=== PATIENT | female | born 1995 | race Caucasian/White ===

== ENCOUNTER 2022-02-21 14:53 | Emergency (ER) | payer BC, SELFPAY ==
[2022-02-21 15:05] VITALS: BP 124/73; PULSE 109; RESP 14; TEMP 36.6; O2SAT 99; BMI 33.5
[2022-02-21 15:15] LABS: Apearance,Urine Cloudy (Clear); Color,Urine Yellow (Yellow); PH,Urine 6.5 (5.0-8.5); Specific Gravity, Urine 1.025 (1.005-1.030)
[2022-02-21 15:16] LABS: Glucose,Urine (UA) Negative (Negative); Ketones,Urine Negative (Negative); Protein,Urine Trace (Negative)
--- NOTE | 2022-02-21 15:20 | EXP.UTC ---
Discharge Plan Disposition Patient Disposition: Home, Self-Care Condition: Good Prescriptions Prescriptions: New cefdinir 300 mg capsule 300 mg PO BID Qty: 14 0RF Referrals Follow up/Referrals: Christiano Chandler [Primary Care Provider] - See instructions Activity Restrictions/Add. Instructions Additional Instructions/Restrictions: *Increase fluids. Water not Soda or Tea *Start antibiotic immediately and be sure to take as ordered for the FULL length of time although you should start to see improvement over the next 48 hours *Be SURE to follow up anytime for new or worsening symptoms with your family doctor. AND in 48 hours for urine culture results with your family doctor, if you do not have a doctor then you may call back to the [facility] for urine culture results and further treatment. We do recommend that you choose and establish care with a Primary Care Physician. ?AND follow up with them ?in 10-14 days to repeat UA to ensure infection is resolved and blood no longer present *Be sure to let your PCP know that we sent urine cultures from the [facility] so they can follow up to ensure that you area the on the correct antibiotic Call your doctor office and make appointment for 48 hours (2 days from today) ?to follow up and get the results of your urine culture and further treatment Clinical Impressions Clinical Impression: UTI (urinary tract infection) Instructions Patient Instructions: DI for Urinary Tract Infection (UTI) Discharge ED Provider: Niurka Rodriguez [facility] HPI General Stated complaint: frequency and burning when urinating Mode of Arrival: Ambulatory Source of Information: Patient Limitations: No Limitations Time Seen by Provider: 02/21/22 15:20 Description of Symptoms (Recalled from Triage Doc. by RN): PATIENT C/O BURNING AND URGENCY WITH URINATION SINCE LAST NIGHT HEENT Symptoms (Recalled from RN notes): No Resp Symptoms (Recalled from RN notes): No Skin Symptoms (Recalled from RN notes): No MS Symptoms (Recalled from RN notes): No Functional Status (Recalled from RN notes): WNL History of Present Illness Provider Complaint: Patient states that she feels like she has a UTI States that she is 10wks OB States that she has been having burning with urination and frequency and urgency like she has with UTI so she came in to get checked Related Data Previous Rx's Medication Instructions Recorded cefdinir 300 mg capsule 300 mg PO BID #14 caps 02/21/22 Allergies Allergy/AdvReac Type Severity Reaction Status Date / Time No Known Allergies Allergy Verified 02/21/22 15:16 Worker's Comp Is this a Worker's Comp case?: No [facility] Disclaimer: The information contained in this section may have been updated after the patient was seen, as this information can be updated by other users. Medical History (Updated 02/21/22 @ 15:25 by Niurka Rodriguez APRN) Migraine Urinary tract infection Social History (Updated 02/21/22 @ 15:16 by Wendie Castanon RN) Smoking Status: Unknown if ever smoked alcohol intake: never current occupational status: employed Travel in the last 8 weeks: None ROS Obtained: Yes All systems reviewed & no additional complaints except as documented and Yes Systems reviewed as appropriate & no additional complaints except as documented Constitutional Constitutional: Reports system reviewed and no additional complaints, except as documented, Reports as per HPI and Denies fever(s) ENT Ears, Nose, Mouth, and Throat: Reports system reviewed and no additional complaints, except as documented and Reports as per HPI Cardiovascular Cardiovascular: Reports system reviewed and no additional complaints, except as documented and Reports as per HPI Respiratory Respiratory: Reports system reviewed and no additional complaints, except as documented and Reports as per HPI Gastrointestinal Gastrointestingal: Reports system reviewed and no additional complaints, except as documented and as per HPI; Denies a
[2022-02-21 15:21] LABS: Bilirubin,Urine Negative (Negative); Blood, Urine Trace (Negative)
[2022-02-21 15:22] LABS: UTC Leukocyte Esterase,Urine 1+ (Negative); Urobilinogen,Urine 0.2 EU/dl (0.2)
[2022-02-21 15:23] LABS: UTC Nitrate,Urine Negative (Negative)
[2022-02-21 15:26] VITALS: BP 124/73; PULSE 109; RESP 14; TEMP 36.6; O2SAT 99
== END 2022-02-21 15:40 | disposition home or self-care (01) ==
PROVIDERS: Emergency Provider Nurse Practitioner; PCP Pediatrics
DX: N39.0 Urinary tract infection, site not specified (principal)
CPT/HCPCS: 81003; 87086; 87088; 87186; 99212; 99213; G0463

== ENCOUNTER 2024-05-25 22:00 | Emergency (ER) | payer BC, SELFPAY ==
[2024-05-25 22:13] VITALS: BP 115/73; PULSE 128; RESP 18; TEMP 37.1; O2SAT 97; BMI 33.9
--- NOTE | 2024-05-25 23:27 | ECG_ITS ---
APPROVED REPORT Exam: Resting ECG HR:115 bpm ECG Measurements Heart Rate 115 AXES IA 160 P 55 QRSd 71 QRS 61 QT 281 T 50 QTc 349 Conclusion SINUS TACHYCARDIA POSSIBLE LEFT ATRIAL ENLARGEMENT [-0.1mV P-WAVE IN V1/V2] Poor R wave progression, POSSIBLE ANTEROLATERAL MYOCARDIAL INFARCTION , OF INDETERMINATE AGE [30 ms Q WAVE IN I/aVL/V3-V6] No STEMI Electronically signed by : AMANDA FLORES, 05/26/2024 04:21:38
[2024-05-25] MEDS: ONDANSETRON 4MG/2ML VIAL 4 MG IV (23:42)
[2024-05-25] MEDS: KETOROLAC 30MG/ML VIAL 30 MG IV (23:42)
[2024-05-25] MEDS: LACTATED RINGERS 1000ML 1,000 ML 999 ML IV (23:43)
[2024-05-25 23:46] LABS: Coronavirus 19, PCR Not Detected (NotDetected); Influenza A, PCR Not Detected (NotDetected); Influenza B, PCR Not Detected (NotDetected)
[2024-05-25 23:55] LABS: Basophils # 0.1 K/mm3 (0-0.2); Basophils % 0.4 % (0.1-2.0); Eosinophils % 0.1 % (0.1-12.0); Hematocrit 37.8 % (37.0-47.0); Hemoglobin 12.7 g/dL (12.2-16.2); Lymphocytes # 1.2 K/mm3 (0.7-4.5); Lymphocytes % 8.7 % (10-50); Mean Corpuscular HGB Conc 33.6 g/dL (31.8-35.4); Mean Corpuscular Volume 89.2 fl (81-99); Monocytes # 0.6 K/mm3 (0.1-1.0); Monocytes % 4.1 % (1.7-9.3); Neutrophils # 12.1 K/mm3 (1.8-7.8); Neutrophils % 86.3 % (37.0-80.0); Nucleated Red Blood Cells # 0 10^3/uL; Nucleated Red Blood Cells % 0 %; Platelet Count 215 K/mm3 (142-424); Red Blood Count 4.24 M/mm3 (4.20-5.40); Red Cell Distribution Width 12.9 % (11.5-17.5); Red Cell Distribution Width-SD 41.8 fL
[2024-05-26 00:17] LABS: D-Dimer 0.67 ug/mL (0.0-0.5)
[2024-05-26 00:19] LABS: HCG Qualitative, Serum Negative (Negative)
[2024-05-26 01:05] VITALS: BP 142/92; PULSE 96; RESP 20; TEMP 36.8; O2SAT 96
[2024-05-26 01:05] LABS: Alanine Aminotransferase 38 U/L (12-78); Albumin Level 4.2 g/dl (3.5-5.0); Albumin/Globulin Ratio 1.3 (1.1-1.8); Alkaline Phosphatase 92 U/L (38-126); Aspartate Amino Transferase 36 U/L (14-36); Bilirubin,Total 1.4 mg/dl (0.2-1.3); Blood Urea Nitrogen 11 mg/dl (7-17); Calcium 9.2 mg/dl (8.4-10.2); Carbon Dioxide 22 mmol/L (22.0-30.0); Chloride 104 mmol/L (98-107); Creatinine Clearance Estimated 212 mL/min (50-200); Estimated Glomerular Filt Rate 120 ml/min (>60); GFR (African American) 145 ML/MIN (>60); Globulin 3.2 g/dL (1.3-3.2); Glucose 110 mg/dl (74-100); Sodium 137 mmol/L (136-145); Total Protein,Serum 7.4 g/dl (6.3-8.2)
--- NOTE | 2024-05-26 01:05 | ED_ITS ---
Discharge Plan Disposition Patient Disposition: Home, Self-Care Condition: Good Prescriptions Prescriptions: New ondansetron 4 mg tablet,disintegrating 4 mg PO Q6H PRN (Reason: nausea and vomiting) Qty: 10 0RF No Action cefdinir 300 mg capsule 300 mg PO BID Qty: 14 0RF Referrals Follow up/Referrals: Provider,Referral, [Primary Care Provider] - See instructions Activity Restrictions/Add. Instructions Additional Instructions/Restrictions: You were evaluated in the ER and are appropriate for discharge at this time. Take the prescribed ondansetron if needed for nausea and vomiting. Drink plenty of fluids including water, Gatorade, Pedialyte. Take Tylenol or ibuprofen if needed for fevers, body aches. Do not exceed the recommended dose on the bottle. Drink water and eat a small snack each time you take these medications to avoid side effects. Make an appointment with your primary care doctor for reevaluation in 2 to 3 days. Return to the ER with any new, worsening, or otherwise concerning symptoms. Clinical Impressions Clinical Impression: Fever, Body aches, Cough, Vomiting Print Language Print Language: Citizen Of [place] Discharge ED Provider: Jenny Bernal General Adult HPI General Chief complaint: Upper Respiratory Infection Stated complaint: discomfort in chest,headache,SOA,fever Time Seen by Provider: 05/25/24 23:28 Mode of Arrival: Ambulatory Source of Information: Patient Description of Symptoms (Recalled from ER Triage Doc. by RN): pt reports today after alevism she began feeling short of breath, and has been running a fever. pt reports taking dayquil at 8pm. History of Present Illness HPI narrative: 28-year-old female presents to the ER with fever, body aches, nausea, vomiting, mild cough, shortness of breath. She states dry cough started a few days ago but the rest of her symptoms started today after alevism. She reports she is currently on her menstrual period and no chance of being . She states she has no chronic medical conditions, no daily medications, no known drug allergies. She reports taking dayquil approximately 2 hours prior to arrival. She reports Tmax at home of 103. She denies sore throat. No history of blood clot, not on control, no recent long distance travel. Related Data Previous Rx's ?Medication ?Instructions ?Recorded cefdinir 300 mg capsule 300 mg PO BID #14 caps 02/21/22 ondansetron 4 mg disintegrating 4 mg PO Q6H PRN nausea and 05/26/24 tablet vomiting #10 tabs Allergies Allergy/AdvReac Type Severity Reaction Status Date / Time No Known Allergies Allergy Verified 02/21/22 15:16 [facility] Disclaimer: The information contained in this section may have been updated after the patient was seen, as this information can be updated by other users. Medical History (Updated 05/26/24 @ 01:04 by Jenny Bernal MD) Urinary tract infection Migraine Social History (Updated 02/21/22 @ 15:25 by Niurka Rodriguez APRN) Smoking Status: Never smoker alcohol intake: never current occupational status: employed Travel in the last 8 weeks: None Have you lived/traveled outside [place] in past 30 days?: No Contact w/someone who lives/traveled outside [place] past 30 days?: No Exposure to someone with infectious disease in past 14 days?: No Do you have a fever (greater than 100.4 F or 38 C)?: No Have you tested positive for COVID-19: No Exposed to someone with COVID-19 in past 14 days?: No Do you have a sore throat?: No Do you have a cough?: Yes Do you have any weakness?: Yes Do you have any diarrhea?: Yes Are you experiencing any unusual bleeding?: No Do you have any muscle aches/pain?: Yes Do you have any abdominal pain?: No Are you experiencing loss of taste or smell?: No ROS Obtained: Yes Systems reviewed as appropriate & no additional complaints except as documented Per HPI Physical Exam General General appearance: alert Comment: Appears ill but nontoxic Head Head exam: atraumatic and normocephalic Eye Eye exam: Present PERRL and EOMI ENT ENT exam: Present normal oropharynx and mucous membranes moist Neck Neck exam: Present normal inspection and full ROM Chest Chest inspection: Present symmetric chest wall rise Respiratory Respiratory exam: Present normal lung sounds bilaterally; Absent respiratory distress, wheezes or stridor Cardiovascular Cardiovascular exam: Present normal rhythm and tachycardia Abdominal Exam Abdominal exam: Present soft; Absent distention, tenderness, guarding or rebound Extremities Exam Extremities exam: Present full ROM; Absent edema Neurological Exam Neurological exam: Present alert and oriented X3; Absent motor sensory deficit Psychiatric Psychiatric exam: Present normal affect and normal mood Skin Skin exam: Present warm and dry Medical Decision Making Medical Records Medical records reviewed: Yes I reviewed the patient's medical records. Screening: Per USPSTF and CDC recommendations, given the prevalence of disease in our region, it is our hospital?s policy to screen for HIV and viral Hepatitis for all patients aged 18 and over and those with ongoing risk factors. MR Comment: Most recent encounter in our system was February 2022 when patient was treated in [facility] for UTI with cefdinir Devin Inquiry Pt receiving controlled substance: No Vital Signs: 05/25/24 22:13 05/26/24 01:05 05/26/24 01:07 Temperature 98.8 F 98.2 F 97.9 F Temperature Source Oral Oral Pulse Rate 96 H 81 Pulse Rate [Right] 128 H Respiratory Rate 18 20 20 Blood Pressure 142/92 H 142/82 H Blood Pressure [Right Arm] 115/73 Blood Pressure Mean [Right Arm] 87 Blood Pressure Source Automatic Cuff Blood Pressure Position Sitting Sitting 02 Sat by Pulse Oximetry 97 Oxygen Delivery Method Room Air Room Air Room Air Lab Data Lab Results 05/25/24 22:15: SARS-CoV-2 (PCR) Not detected, Influenza A Untype (PCR) Not detected, Influenza Type B (PCR) Not detected 05/25/24 23:48: WBC 14.0 H, RBC 4.24, Hgb 12.7, Hct 37.8, MCV 89.2, MCH 30.0, MCHC 33.6, RDW 12.9, Plt Count 215, MPV 11.0 H, Neut % (Auto) 86.3 H, Lymph % (Auto) 8.7 L, [place] % (Auto) 4.1, Eos % (Auto) 0.1, Baso % (Auto) 0.4, Neut # (Auto) 12.1 H, Lymph # (Auto) 1.2, [place] # (Auto) 0.6, Eos # (Auto) 0.0, Baso # (Auto) 0.1, D-Dimer 0.67 H, Sodium 137, Potassium 4.0, Chloride 104, Carbon Dioxide 22, Anion Gap 15.0, BUN 11, Creatinine 0.60, Estimated Creat Clear 212, Estimated GFR 120, Est GFR ( Amer) 145, Glucose 110 H, Calcium 9.2, Total Bilirubin 1.4 H, AST 36, ALT 38, Alkaline Phosphatase 92, Troponin I < 0.01, Total Protein 7.4, Albumin 4.2, Globulin 3.2, Albumin/Globulin Ratio 1.3, Serum HCG, Qual Negative 05/25/24 23:48 05/25/24 23:48 Orders (Tests/Meds): ED MEDICATIONS Discontinued Medications Generic Name Dose Route Start Last Admin Trade Name Bartoloq PRN Reason Stop Dose Admin Lactated Ringer's 1,000 mls @ 999 mls/hr 05/25/24 23:37 05/25/24 23:43 Lactated Ringer's 1000 Ml Bag IV 05/26/24 00:37 999 mls/hr .Q1H1M ONE Administration Ketorolac Tromethamine 30 mg 05/25/24 23:37 05/25/24 23:42 Ketorolac 30mg/Ml Vial IV 05/25/24 23:38 30 mg ONCE ONE Administration Ondansetron HCl 4 mg 05/25/24 23:38 05/25/24 23:42 Ondansetron 4mg/2ml Vial IV 05/25/24 23:39 4 mg ONCE ONE Administration ORDERS Category Date Time Status CBC w/Auto Diff [Complete Blood Count Auto Diff] Stat Lab 05/25/24 23:48 Completed CMP [Comprehensive Metabolic Panel] Stat Lab 05/25/24 23:48 Completed D-Dimer Stat Lab 05/25/24 23:48 Completed HCG Qualitative, Serum Stat Lab 05/25/24 23:48 Completed Rapid PCR Covid and Flu A/B Stat Lab 05/25/24 22:15 Completed Trop I [Troponin I] Stat Lab 05/25/24 23:48 Completed ECG Request Stat Y 05/25/24 23:37 Ordered Medical Decision Narrative: In summary, this 28-year-old female who is otherwise healthy presents to the emergency department today with bodyaches, fever, cough, vomiting. On initial evaluation patient is tachycardic but otherwise hemodynamically stable, afebrile, she appears ill but nontoxic, lungs clear bilaterally, abdominal exam is benign, she does not report bloody or bilious emesis which is reassuring. Remainder of exam benign. Differential diagnosis includes but is not limited to viral syndrome which I believed to be most likely by far, I also did consider the possibility of ACS or PE though I believe these are less likely. Also considered the possibility of electrolyte abnormality from emesis although she does not report significant enough emesis that I have high suspicion for this. Based on these concerns, I ordered serum labs, cardiac workup, viral swab. ECG personally interpreted demonstrates sinus tachycardia, rate 115, normal axis, normal CA and QTc, no STEMI. Patient received IV fluids, Toradol, Zofran for treatment. Labs personally reviewed demonstrate leukocytosis WBC 14.0, no anemia, normal platelets, CMP nonactionable, hcg negative, troponin undetectably low less than 0.01. I recommended x-ray to assess intrathoracic contents however patient refused this. She has decision-making capacity. X-ray was not performed. D-dimer 0.67, by years criteria PE is excluded. Though patient has leukocytosis, tachycardia on arrival, I believe her source of infection is viral and do not believe it is prudent to treat the patient with sepsis bolus or broad-spectrum antibiotics at this time. She has no evidence of endorgan damage or dysfunction. She received IV fluids and her tachycardia has dramatically improved. She is resting much more comfortably and tolerating oral intake since receiving Zofran. I believe she is appropriate for discharge at this time and she is comfortable with this plan. Zofran was prescribed for outpatient management of symptoms. Patient was given instructions on symptomatic monitoring and management, follow up instructions, and return precautions for the emergency department. Patient indicated understanding and was discharged in stable condition. Critical Care Critical Care Time Critical Care Time: No
[2024-05-26 01:07] VITALS: BP 142/82; PULSE 81; RESP 20; TEMP 36.6; O2SAT 100
[2024-05-26 01:17] LABS: Troponin I < 0.01 ng/ml (0.00-0.034)
== END 2024-05-26 01:09 | disposition home or self-care (01) ==
PROVIDERS: Emergency Medicine; Emergency Provider Emergency Medicine
DX: R06.02 Shortness of breath (principal); R11.2 Nausea with vomiting, unspecified; R50.9 Fever, unspecified; R00.0 Tachycardia, unspecified
CPT/HCPCS: 80053; 84484; 84703; 85025; 85378; 87636; 93005; 96361; 96374; 96375; 99284; J1885; J2405; J7120